=== PATIENT | male | born 1970 | race Caucasian/White ===

== ENCOUNTER 2021-09-29 10:58 | Outpatient (REF) | payer MEDICAID, SELFPAY ==
[2021-09-29 12:54] LABS: Hemoglobin 15.6 g/dl (14.0-18.0); Mean Corpuscular HGB Conc 33.9 g/dl (31.0-36.0); Mean Corpuscular Hemoglobin 31.8 pg (27.0-33.0); Mean Corpuscular Volume 93.9 fL (80.0-98.0); Mean Platelet Volume 10.4 fL (9.4-12.4); Platelet Count 295 X10*3/uL (160-400); Red Cell Distribution Width 12.7 % (11.0-16.0); White Blood Count 11.3 X10*3/uL (4.8-10.8)
[2021-09-29 13:32] LABS: Alanine Aminotransferase 23 U/L (0-40); Albumin Level 4.5 g/dL (3.5-5.0); Alkaline Phosphatase 75 U/L (39-117); Anion Gap 14 (12-20); Aspartate Amino Transferase 21 U/L (5-37); Bilirubin Total 0.6 mg/dL (0.0-1.0); Blood Urea Nitrogen 11 mg/dL (9-16); Calcium 10.3 mg/dL (8.4-10.2); Carbon Dioxide 27 mmol/L (22-29); Chloride 103 mmol/L (96-108); Estimated Glomerular Filt Rate > 60; Glucose Random 102 mg/dL (60-115); Potassium 5.1 mmol/L (3.3-5.1); Sodium 139 mmol/L (135-145); Total Protein 7.5 g/dL (6.5-8.0)
== END 2021-09-29 10:59 | disposition home or self-care (01) ==
LOC: HO.LAB 10:58
PROVIDERS: PCP Internal Medicine; Referring Provider Internal Medicine; Visit Provider Nurse Practitioner Family
DX: Z01.818 Encounter for other preprocedural examination (principal)
CPT/HCPCS: 36415; 80053; 85027; 99202

== ENCOUNTER 2021-12-09 13:12 | Outpatient (REF) | payer MEDICAID, SELFPAY ==
--- NOTE | ~2021-12-09 | CT_ITS ---
EXAMINATION: CT CHEST SCREENING CLINICAL INFORMATION: Current smoker. 30 pack year history. COMPARISON: Thoracic spine x-ray June 2019 TECHNIQUE: Multidetector volumetric CT imaging of the chest is performed without contrast using low dose technique. Additional 2D coronal and sagittal reformatted images and axial 3D maximum intensity projection (MIP) images are generated on the CT workstation. This CT examination was performed using dose optimization techniques as appropriate, variously including the following: *Automated exposure control *Adjustment of mA and/or kV according to patient size (this includes techniques or standardized protocols for targeted exams where dose is matched to indication/reason for exam; i.e. extremities or head) *Use of iterative reconstruction technique DLP: 56 mGy-cm FINDINGS: LUNGS: There is mild paraseptal emphysema. There is biapical pleural parenchymal scarring. The lungs are otherwise clear. No endobronchial or endotracheal lesion. MEDIASTINUM: The mediastinum is normal. PLEURA: There is no pleural effusion. No pleural mass or thickening. AXILLA: No lymphadenopathy. UPPER ABDOMEN: Unremarkable OSSEOUS STRUCTURES: Thoracic scoliosis. Mild degenerative changes of the spine. CT/CT lung screening IMPRESSION: Emphysema. Biapical pleural and parenchymal scarring. No pulmonary nodules. ASSESSMENT: Lung-RADS category 1: Negative RECOMMENDATION: Annual low-dose chest CT follow-up recommended.
== END 2021-12-09 13:13 | disposition home or self-care (01) ==
LOC: HO.CT 13:12
PROVIDERS: PCP Internal Medicine; Visit Provider Physician Assistant Medical
DX: Z12.2 Encounter for screening for malignant neoplasm of respiratory organs (principal); F17.210 Nicotine dependence, cigarettes, uncomplicated
CPT/HCPCS: 71271; G0296

== ENCOUNTER 2022-02-14 06:54 | Day surgery (SDC) | payer MEDICAID, SELFPAY ==
[2022-02-07 13:46] VITALS: BMI 28.1
--- NOTE | 2022-02-13 09:52 | HO.ANESPROP2 ---
Documented by User: Charlette Zimmerman NP 02/13/22 09:53 HPI - Anesthesia Eval Consult details Narrative: 52yo M for Colonoscopy PMFSH Active Problems Active Problems: All Active Problems (Updated 02/07/22 @ 13:38 by Sandra Leigh RN) Personal history of nicotine dependence (Acute) Past Medical History Medical History (Updated 02/07/22 @ 13:38 by Sandra Leigh RN) COVID-19 vaccine series completed Hyperlipidemia Personal history of nicotine dependence Family History Family History Mother Glioblastoma Father HTN (hypertension) Diabetes Alcoholic Stroke Maternal Grandmother Stomach cancer Paternal Grandfather No problems noted. Surgical History Surgical History (Updated 12/09/21 @ 13:44 by Marly Paz PA-C) History of dermoid cyst excision History of hemorrhoidectomy Social History Social History Patient Tobacco Use Status: Current everyday Tobacco user Tobacco use type: Cigarette Cigarette Packs Per Day: 1 Cigarettes Per Day: 20.0 Years Smoked: 35 Use of substances other than those prescribed or required for medical reasons: Yes Advance Directives: No Advance Directives on File: No Meds Allergies Allergy/AdvReac Type Severity Reaction Status Date / Time shellfish derived Allergy Severe Anaphylaxis Verified 02/07/22 13:48 shrimp Allergy Severe Anaphylaxis Verified 02/07/22 13:48 silver dollar plant Allergy Mild Sneezing Uncoded 09/29/21 11:02 Home Medications Medication Instructions Recorded Confirmed Last Taken Type epinephrine 0.3 mg/0.3 mL 0.3 mg IM Q8-10H PRN Anaphylaxis 09/29/21 02/14/22 Unknown History injection, auto-injector fluticasone propionate 50 2 spray intranasal DAILY 09/29/21 02/14/22 02/13/22 History mcg/actuation nasal spray,suspension lidocaine 5 % topical patch 1 patch topical DAILY 09/29/21 02/14/22 Unknown History rosuvastatin 5 mg tablet 5 mg PO DAILY 09/29/21 02/14/22 02/13/22 History cetirizine 10 mg tablet 1 tab PO DAILY 02/14/22 02/14/22 02/13/22 History Exam Exam Date and Time: February 13, 2022 0952 Height,Weight and Vital Signs: Height 5 ft 7 in Weight 81.647 kg Pertinent Lab Results Pertinent Lab Results: Laboratory Tests 09/29/21 09/29/21 12:29 12:29 WBC 11.3 H Hgb 15.6 Hct 46.0 Plt Count 295 Sodium 139 Potassium 5.1 Chloride 103 Carbon Dioxide 27 BUN 11 Creatinine 0.78 Assessment and Plan Assessment Anesthesia Assessment: Chart Reviewed Documented by User: Juan Lewis MD 02/14/22 08:30 [facility] Past Medical History Medical History (Updated 02/07/22 @ 13:38 by Sandra Leigh RN) COVID-19 vaccine series completed Hyperlipidemia Personal history of nicotine dependence Family History Family History Mother Glioblastoma Father HTN (hypertension) Diabetes Alcoholic Stroke Maternal Grandmother Stomach cancer Paternal Grandfather No problems noted. Family history of problems with anesthesia: No Surgical History Surgical History (Updated 12/09/21 @ 13:44 by Marly Paz PA-C) History of dermoid cyst excision History of hemorrhoidectomy History of Problems with Anesthesia: No Social History Social History Patient Tobacco Use Status: Current everyday Tobacco user Tobacco use type: Cigarette Cigarette Packs Per Day: 1 Cigarettes Per Day: 20.0 Years Smoked: 35 Use of substances other than those prescribed or required for medical reasons: Yes Advance Directives: No Advance Directives on File: No Meds Allergies Allergy/AdvReac Type Severity Reaction Status Date / Time shellfish derived Allergy Severe Anaphylaxis Verified 02/07/22 13:48 shrimp Allergy Severe Anaphylaxis Verified 02/07/22 13:48 silver dollar plant Allergy Mild Sneezing Uncoded 09/29/21 11:02 Home Medications Medication Instructions Recorded Confirmed Last Taken Type epinephrine 0.3 mg/0.3 mL 0.3 mg IM Q8-10H PRN Anaphylaxis 09/29/21 02/14/22 Unknown History injection, auto-injector fluticasone propionate 50 2 spray intranasal DAILY 09/29/21 02/14/22 02/13/22 History mcg/actuation nasal spray,suspension lidocaine 5 % topical patch 1 patch topical DAILY 09/29/21 02/14/22 Unknown History rosuvastatin 5 mg tablet 5 mg PO DAILY 09/29/21 02/14/22 02/13/22 History cetirizine 10 mg tablet 1 tab PO DAILY 02/14/22 02/14/22 02/13/22 History Exam Airway Mallampati Class: III TM Dist: >3cm Neck ROM: Full Loose/Missing/Broken Teeth: No Heart: rrr Lungs: clear Assessment and Plan Final Anesthetic Review Family History of Problems with Anesthesia: No History of Problems with Anesthesia: No NPO: Yes ASA Class: II Final Preanesthetic Review: No Changes in Pt Med Stat, Meds/Allgs Chart Reviewed, Consent Obtained/Reviewed and Anes Risks/Benef Reviewed Patient Risk: Low Procedure Risk: Low Anesthetic Plan Anesthetic Plan: MAC: Disposition: Standard PACU
--- NOTE | 2022-02-14 06:07 | P.HPSUR_ITS ---
Pre-Procedural Eval Section A Date of Service: 02/14/22 Section B Chief Complaint: screening Relevant Family History (Specify if Yes): No Relevant Social History: Tobacco Use (occ THC use) Present Medications: see Short Stay Collaborative assessment Medical History: Significant History (high cholesterol) History of Previous Operations: Relevant previous surgery/procedure and date(s) (hemorrhoidectomy) Allergies: Allergies Allergy/AdvReac Type Severity Reaction Status Date / Time shellfish derived Allergy Severe Anaphylaxis Verified 02/07/22 13:48 shrimp Allergy Severe Anaphylaxis Verified 02/07/22 13:48 silver dollar plant Allergy Mild Sneezing Uncoded 09/29/21 11:02 Review of Systems Sugical H&P ROS: Negative: Constitution, Cardiovascular, Respiratory, Neurological, Psychiatric, Hem-Onc, Allergic/Immunologic, Gastrointestinal, Genitourinary, Musculoskeletal, Integumentary, Endocrine and Eyes/Ears/Nose/Throat Exam Surgical H&P Exam: Normal: HEENT, Normal: Heart, Normal: Lungs, Normal: Extremit ies, Normal: Abdomen, Normal: Skin and Normal: Neurological Plan Diagnosis/Plan: Unchanged I have reviewed the history and physical and performed a pertinent physical examination on my patient. No changes have occurred unless specified.
[2022-02-14 07:02] VITALS: BP 110/72; PULSE 62; RESP 18; TEMP 36.6; O2SAT 97
[2022-02-14] MEDS: Lactated Ringers 1,000 ML 100 ML IVCONT (07:31)
--- NOTE | 2022-02-14 08:39 | P.OP_ITS ---
Operative Note Operative Note Date of Service: 02/14/22 Narrative: Operative Information Procedure Description: Colonoscopy Indication: screening Anesthesia: MAC COLONOSCOPY Instrument: Olympus variable stiffness pediatric scope 190L Colonoscopy Monitoring: Vital signs and clinical assessment, continuous EKG monitoring, Pulse oximetry, Carbon Dioxide monitoring and blood pressure monitoring were done throughout the procedure. Colon withdrawal time was 18 minutes. Procedure: The patient was placed in the left lateral decubitis position and pre-procedure medications were administered. After a digital rectal examination of the ano-rectum, the video colonoscope was inserted into the rectum and advanced through the colon to the cecum/TI. The colonoscope was slowly withdrawn in a retrograde panoramic fashion and the colon mucosa was carefully examined including a retroflexed view of the rectum. Findings and interventions are described below. Procedure Difficulty: easy Findings: Terminal Ileum-normal Cecum: 4-5 mm sessile polyp removed with cold forceps and 8-10 mm sessile polyp removed with cold snare Ascending Colon: few diverticula seen Transverse Colon -normal Descending Colon: few scattered diverticula Sigmoid Colon: moderate severe diverticulosis, x 4 sessile polyps 10-12mm removed with cold snare Rectum: Retroflexion with small internal hemorrhoids, grade I Anorectum - normal Colon preparation: [place] Bowel Preparation Scale Right colon; 1-2 Transverse colon: 2 Left colon; 1-2 (0 = Unprepared colon segment with mucosa not seen due to solid stool that cannot be cleared. 1 = Portion of mucosa of the colon segment seen, but other areas of the colon segment not well seen due to staining, residual stool and/or opaque liquid. 2 = Minor amount of residual staining, small fragments of stool and/or opaque liquid, but mucosa of colon segment seen well. 3 = Entire mucosa of colon segment seen well with no residual staining, small fragments of stool or opaque liquid) Impression and Post Procedure Diagnosis: polyps internal hemorrhoids diverticular disease Plan: High fiber diet leaflet Avoid straining at stool, epsom salts and sitz bath, anusol supps or cream Repeat Colonoscopy in 1-2 years due to fair prep or earlier if clinically indicated Above findings were reviewed with the patient and relevant handouts were provided if indicated.
[2022-02-14 09:18] VITALS: BP 96/50; PULSE 60; RESP 16; TEMP 36.6; O2SAT 96
[2022-02-14 09:33] VITALS: BP 107/47; PULSE 66; RESP 16; TEMP 36.6; O2SAT 96
== END 2022-02-14 11:09 | disposition home or self-care (01) ==
PROVIDERS: PCP Internal Medicine; Visit Provider Internal Medicine Gastroenterology
PROC: 0DJD8ZZ Inspection of Lower Intestinal Tract, Via Natural or Artificial Opening Endoscopic (ICD-10-PCS; CPT 45378; principal; 2022-02-14 08:30)
DX: Z12.11 Encounter for screening for malignant neoplasm of colon (principal); D12.0 Benign neoplasm of cecum; K63.5 Polyp of colon; K57.30 Diverticulosis of large intestine without perforation or abscess without bleeding; K64.0 First degree hemorrhoids; F17.210 Nicotine dependence, cigarettes, uncomplicated; E78.5 Hyperlipidemia, unspecified
CPT/HCPCS: 45385; 45380; 88305

== ENCOUNTER → 2022-03-21 11:26 | Outpatient (BNVA) | payer MEDICAID, SELFPAY | PROVIDERS: PCP Internal Medicine; Visit Provider Nurse Practitioner Family | DX: K57.90 Diverticulosis of intestine, part unspecified, without perforation or abscess without bleeding (principal); K64.9 Unspecified hemorrhoids; D36.9 Benign neoplasm, unspecified site; Z98.890 Other specified postprocedural states | CPT/HCPCS: 99212 ==

== ENCOUNTER 2023-02-02 11:08 | Outpatient (REF) | payer MEDICAID, SELFPAY ==
--- NOTE | ~2023-02-02 | CT_ITS ---
EXAMINATION: CT CHEST SCREENING CLINICAL INFORMATION: Nicotine dependence. COMPARISON: None available. TECHNIQUE: Multidetector volumetric CT imaging of the chest is performed without contrast using low dose technique. Additional 2D coronal and sagittal reformatted images and axial 3D maximum intensity projection (MIP) images are generated on the CT workstation. This CT examination was performed using dose optimization techniques as appropriate, variously including the following: *Automated exposure control *Adjustment of mA and/or kV according to patient size (this includes techniques or standardized protocols for targeted exams where dose is matched to indication/reason for exam; i.e. extremities or head) *Use of iterative reconstruction technique. DLP: 48 mGy-cm. FINDINGS: LUNGS: The lungs are well-expanded and clear of acute pneumonic process. There is bilateral minimal apical parenchymal scarring and pleural thickening. There are no pulmonary nodules, mass or consolidation. MEDIASTINUM: The thyroid lobes are symmetrical and normal. The central trachea and bronchi are widely patent. Heart size and pulmonary vascularity are normal. There is no pericardial effusion. No abnormal size mediastinal or hilar lymphadenopathy seen. CORONARY ARTERY CALCIFICATION: None visualized on this study. PLEURA: There is no pleural effusion. No pleural mass or thickening. AXILLA: No lymphadenopathy. UPPER ABDOMEN: Unremarkable OSSEOUS STRUCTURES: There is mild rotoscoliosis of dorsal spine. CT/CT lung screening IMPRESSION: Unremarkable CT chest exam. ASSESSMENT: Lung-RADS category 1: Negative RECOMMENDATION: Low-dose annual CT chest followup.
== END 2023-02-02 11:09 | disposition home or self-care (01) ==
LOC: HO.CT 11:08
PROVIDERS: PCP Registered Nurse; Visit Provider Physician Assistant Medical
DX: Z12.2 Encounter for screening for malignant neoplasm of respiratory organs (principal); F17.210 Nicotine dependence, cigarettes, uncomplicated
CPT/HCPCS: 71271